=== PATIENT | female | born 1960 | race Caucasian/White ===

== ENCOUNTER 2022-11-12 14:26 | Emergency (ER) | payer OTHER ==
[~2022-11-12] VITALS: Ht 162.6 cm; Wt 61.4 kg
[~2022-11-12 14:26] MED LIST: HYDR-4383 PO
[2022-11-12 15:07] LABS: BASOPHILS % (AUTO) 0.7 % (0-1); EOSINOPHILS # (AUTO) 0.3 X10'3 (0-0.9); EOSINOPHILS % (AUTO) 4.8 % (0-6); HEMATOCRIT 40.3 % (35.0-45.0); HEMOGLOBIN 13.7 g/dl (12.0-16.0); LYMPHOCYTES # (AUTO) 1.6 X10'3 (1.1-4.8); LYMPHOCYTES % (AUTO) 23.1 % (21-51); MEAN CORPUSCULAR HGB CONC 33.9 g/dL (33.0-36.5); MEAN CORPUSCULAR VOLUME 94.3 FL (78-98); MEAN PLATELET VOLUME 7.2 FL (7.4-10.4); MONOCYTES # (AUTO) 0.7 X10'3 (0-0.9); MONOCYTES % (AUTO) 10.2 % (2-12); NEUTROPHILS # (AUTO) 4.2 X10'3 (1.8-7.7); NEUTROPHILS % (AUTO) 61.2 % (42-75); PLATELET COUNT 433 X10'3 (140-440); RED BLOOD COUNT 4.28 X10'6 (4.20-5.60); RED CELL DISTRIBUTION WIDTH 13.3 % (11.5-14.5); WHITE BLOOD COUNT 6.8 X10'3 (4.5-11.0)
[2022-11-12 15:24] LABS: ALANINE AMINOTRANSFERASE 98 U/L (12-78); ALBUMIN 3.5 G/DL (3.4-5.0); ALBUMIN/GLOBULIN RATIO 0.9 (1.1-1.5); ALKALINE PHOSPHATASE 128 IU/L (46-116); ANION GAP 7 (8-16); ASPARTATE AMINO TRANSFERASE 64 U/L (10-37); BILIRUBIN,TOTAL 0.2 MG/DL (0.1-1.0); BLOOD UREA NITROGEN 17 MG/DL (7-18); BUN/CREATININE RATIO 20.5 (10.0-20.0); CALCIUM 9.3 MG/DL (8.5-10.1); CHLORIDE 102 MMOL/L (99-107); CREATININE 0.83 MG/DL (0.40-0.90); GLUCOSE 129 MG/DL (70-104); LIPASE 85 U/L (73-393); POTASSIUM 4.1 MMOL/L (3.5-5.1); SODIUM 137 MMOL/L (135-145); TOTAL PROTEIN 7.5 G/DL (6.4-8.2); eGFR 70 ML/MIN
[2022-11-12] MEDS ORDERED: ondansetron 4mg rapidly disintigrating tab PO ONE (15:35)
[2022-11-12 15:43] LABS: CLARITY,URINE SLIGHTLY CLOUDY (Clear); COLOR,URINE YELLOW (Yellow); GLUCOSE, URINE NEGATIVE (Neg); KETONES,URINE TRACE mg/dl (Neg); LEUKOCYTE ESTERASE ,URINE NEGATIVE (Neg); NITRITES, URINE NEGATIVE (Neg); OCCULT BLOOD,URINE NEGATIVE (Neg); PROTEIN,URINE TRACE mg/dl (Neg); UROBILINOGEN,URINE 0.2 E.U/dL (0.2-1.0)
[2022-11-12 15:45] LABS: URINE HCG NEGATIVE (NEG)
[2022-11-12 15:49] LABS: UA COLLECTION TYPE CLN CATCH MIDSTREAM
[2022-11-12 16:01] LABS: BACTERIA,URINE 2+ /HPF (Neg); MUCUS STRANDS MANY /LPF (Neg); RBC,URINE 0-2 /HPF (0-2); SQUAMOUS EPITHELIAL CELL,UR MANY /LPF (FEW)
[2022-11-12] MEDS ORDERED: diphenhydrAMINE 25mg capsule PO ONE (17:45)
[2022-11-12] MEDS ORDERED: scopolamine 1mg/72 hr patch TD ONE (17:49)
[2022-11-12 18:11] VITALS: BP 125/89
== END 2022-11-12 18:14 | disposition home or self-care (01) ==
LOC: ER 14:27
DX: R11.2 Nausea with vomiting, unspecified (principal); R74.01 Elevation of levels of liver transaminase levels; R74.8 Abnormal levels of other serum enzymes; Z79.899 Other long term (current) drug therapy
CPT/HCPCS: 36415; 71045; 76700; 80053; 81001; 81025; 83690; 83880; 84484; 85025; 93005; 99285; Q0163

== ENCOUNTER 2023-10-01 12:22 | Emergency (ER) | payer OTHER ==
[~2023-10-01] VITALS: Ht 162.6 cm; Wt 60.2 kg
[2023-10-01 12:28] VITALS: BP 169/103; PULSE 95; TEMP 98.6; O2SAT 99
[2023-10-01 13:26] VITALS: RESP 18
[2023-10-01] MEDS: oxyCODONE/APAP 10/325mg tablet PO ONE (13:26)
[2023-10-01] MEDS ORDERED: OXYC-145 PO ×2 (13:36→13:37)
== END 2023-10-01 13:54 | disposition home or self-care (01) ==
LOC: ER 12:23
DX: M54.50 Low back pain, unspecified (principal); Z79.899 Other long term (current) drug therapy
CPT/HCPCS: 99283